=== PATIENT | male | born 1960 | race Caucasian/White ===

== ENCOUNTER 2023-06-01 10:46 | Outpatient (AMB) | payer BC, SELFPAY ==
--- NOTE | 2023-06-01 11:26 | HO.SPINEOV ---
Intake Intake Visit Reasons: low back pain Intake Note: Mr. Valdez is here today c/o low back pian radiating into both legs. MRI done @ [facility]/brought disc. 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 HPI: This 62-year-old male is suffering from chronic back pain that he has been managing since 1997. He underwent an L5-S1 fusion in 2003 that was complicated by an blood vessel injury. He recovered well. He states that he is always suffering from chronic back pain, which is managed with low dose of oxycodone. He recently he developed more sciatic pain in both legs with the left side is more affected than the right side. The pain goes down the back of his leg. The patient is afraid that permanent neurological damage is going to occur if this is not addressed. The following conservative treatment options were tried without success antiinflammatories, tylenol, physician guided home exercise plan, and many cortisone shots PMH: L5-S1 lumbar fusion, shoulder surgery and foot surgery Medications: Oxycodone, Neurontin and Flexeril Allergies: NKDA Social history: . Nonsmoker. Physical Exam: Pleasant male not in obvious agony. He is able to flex and extend without significant difficulties or pain. Straight leg raise is negative bilaterally. There is spontaneous twitching of the bilateral calves. Motor exam is 5 5 throughout. Sensory exam is intact. No pathological reflexes. Radiological Studies: MRI of the lumbar spine done at [facility] show status post L5-S1 lumbar fusion and severe L4-5 degenerative disc disease with bilateral L4 foraminal stenosis with the left side is more affected than the right side. Impression/Plan: This patient is suffering from chronic manageable back pain and intermittent sciatica that is not changing his lifestyle. I reviewed the imaging in detail with the patient and discussed the surgical approach that I would use if he would address the L4-5 degenerative disc disease and associated foraminal stenosis. I would offer him an oblique lumbar interbody fusion. However, currently the symptoms are not severe enough to offer him any surgery. The risk of permanent nerve damage is very low. I advised him to return to my clinic if they sciatica intensifies or he feet develops any form of neurological deficits. Thank you for allowing me to participate in your patients care. total time spent was 50 minutes in counseling ,coordination of plan, personal review of imaging, surgical decision making and subsequent plan Sandeep Romero MD, PhD [facility] Trained Neurosurgeon Director, [facility] Coding Level of Care Code New Pt Level 4 (43191) Diagnoses Lumbar spinal stenosis due to adjacent segment disease after fusion procedure M48.061; M51.36 Chronic back pain M54.9; G89.29
== END 2023-06-01 12:07 | disposition home or self-care (01) ==
PROVIDERS: PCP Nurse Practitioner Family; Referring Provider Nurse Practitioner Family; Visit Provider Neurological Surgery
DX: M48.061 Spinal stenosis, lumbar region without neurogenic claudication (principal); M51.36 Other intervertebral disc degeneration, lumbar region; M54.9 Dorsalgia, unspecified; G89.29 Other chronic pain
CPT/HCPCS: 99204

== ENCOUNTER → 2023-06-01 10:46 | Outpatient (BNVA) | payer BC, SELFPAY | PROVIDERS: PCP Nurse Practitioner Family; Referring Provider Nurse Practitioner Family; Visit Provider Neurological Surgery ==